=== PATIENT | female | born 1950 | race African-American/Black ===

== ENCOUNTER 2016-06-01 14:15 | Outpatient (RCR) | payer OTHER | END 2016-06-22 | disposition home or self-care (01) | LOC: PTY 14:15 | DX: I69.354 Hemiplegia and hemiparesis following cerebral infarction affecting left non-dominant side (principal) ==

== ENCOUNTER 2016-06-29 14:13 | Outpatient (RCR) | payer OTHER | END 2016-07-20 | disposition home or self-care (01) | LOC: PTY 14:13 | DX: I69.354 Hemiplegia and hemiparesis following cerebral infarction affecting left non-dominant side (principal); Z91.81 History of falling; I10 Essential (primary) hypertension; E11.9 Type 2 diabetes mellitus without complications ==

== ENCOUNTER 2016-07-22 14:20 | Outpatient (RCR) | payer OTHER | END 2016-08-20 | disposition home or self-care (01) | LOC: PTY 14:20 | DX: I69.354 Hemiplegia and hemiparesis following cerebral infarction affecting left non-dominant side (principal); Z91.81 History of falling; I10 Essential (primary) hypertension; E11.9 Type 2 diabetes mellitus without complications ==

== ENCOUNTER 2017-01-06 10:15 | Outpatient (RCR) | payer OTHER | END 2017-01-20 | disposition home or self-care (01) | LOC: PTY 10:15 | DX: I69.354 Hemiplegia and hemiparesis following cerebral infarction affecting left non-dominant side (principal); Z91.81 History of falling; I10 Essential (primary) hypertension; E11.9 Type 2 diabetes mellitus without complications ==

== ENCOUNTER → 2017-03-22 | Outpatient (RCR) | payer OTHER | END | disposition home or self-care (01) | LOC: PTY 02-22 13:38 | DX: S46.811D Strain of other muscles, fascia and tendons at shoulder and upper arm level, right arm, subsequent encounter (principal); I69.354 Hemiplegia and hemiparesis following cerebral infarction affecting left non-dominant side; I10 Essential (primary) hypertension; E11.9 Type 2 diabetes mellitus without complications; Z95.5 Presence of coronary angioplasty implant and graft ==

== ENCOUNTER 2017-04-19 11:15 | Outpatient (RCR) | payer OTHER | END 2017-04-21 | disposition home or self-care (01) | LOC: PTY 11:15 | DX: S46.811D Strain of other muscles, fascia and tendons at shoulder and upper arm level, right arm, subsequent encounter (principal); I69.354 Hemiplegia and hemiparesis following cerebral infarction affecting left non-dominant side; Z91.81 History of falling; I10 Essential (primary) hypertension; E11.9 Type 2 diabetes mellitus without complications ==

== ENCOUNTER 2017-05-17 13:00 | Outpatient (RCR) | payer OTHER | END 2017-05-22 | disposition home or self-care (01) | LOC: PTY 13:00 | DX: S46.811D Strain of other muscles, fascia and tendons at shoulder and upper arm level, right arm, subsequent encounter (principal) ==

== ENCOUNTER 2017-05-24 13:05 | Outpatient (RCR) | payer OTHER | END 2017-06-22 | disposition home or self-care (01) | LOC: PTY 13:05 | DX: S46.819D Strain of other muscles, fascia and tendons at shoulder and upper arm level, unspecified arm, subsequent encounter (principal) ==

== ENCOUNTER 2017-06-29 12:50 | Outpatient (RCR) | payer OTHER | END 2017-07-20 | disposition home or self-care (01) | LOC: PTY 12:50 | DX: S46.819D Strain of other muscles, fascia and tendons at shoulder and upper arm level, unspecified arm, subsequent encounter (principal); S46.811D Strain of other muscles, fascia and tendons at shoulder and upper arm level, right arm, subsequent encounter ==